=== PATIENT | male | born 1995 | race Caucasian/White ===

== ENCOUNTER 2018-09-13 08:47 | Emergency (ER) | payer BC ==
--- NOTE | 2018-09-13 10:04 | EDPHYS ---
Physician Documentation [facility] Name: Rodo Ybarra Age: 22 yrs Sex: Male : 1995 Arrival Date: 09/13/2018 Time: 08:52 Bed 20 Private MD: None, None ED Physician Florin Smith HPI: 09/13 09:22 This 22 yrs old Male presents to ER via Ambulatory with complaints of Flu Symptoms. kb 09:22 The patient or guardian reports cough, that is intermittent, described as moderate, kb with no sputum, flu symptoms, low-grade fever, myalgias. Onset: The symptoms/episode began/occurred 2 week(s) ago. Severity of symptoms: At their worst the symptoms were mild, moderate, in the emergency department the symptoms are unchanged. Modifying factors: The symptoms are alleviated by nothing, the symptoms are aggravated by nothing. Associated signs and symptoms: Pertinent positives: earache, fever, nausea, rhinorrhea, sore throat, Pertinent negatives: chest pain, diarrhea, vomiting. The patient has not experienced similar symptoms in the past. The patient has not recently seen a physician. Historical: - Allergies: 09:04 No Known Allergies; iw - Home Meds: 09:04 None [Active]; iw - PMHx: 09:04 None; iw - PSHx: 09:04 None; iw - Immunization history:: Adult Immunizations not up to date. - Social history:: Smoking status: Patient/guardian denies using tobacco. - Ebola Screening: : Patient negative for fever greater than or equal to 101.5 degrees Fahrenheit, and additional compatible Ebola Virus Disease symptoms Patient denies exposure to infectious person Patient denies travel to an Ebola-affected area in the 21 days before illness onset No symptoms or risks identified at this time. ROS: 09:20 Cardiovascular: Negative for chest pain, palpitations, and edema, Back: Negative for kb injury and pain, : Negative for injury, bleeding, discharge, and swelling, MS/Extremity: Negative for injury and deformity, Skin: Negative for injury, rash, and discoloration, Neuro: Negative for headache, weakness, numbness, tingling, and seizure. 09:20 Constitutional: Positive for body aches, chills, fatigue, fever, malaise, Negative for poor PO intake, weight loss. 09:20 ENT: Positive for ear pain, rhinorrhea, sinus congestion, sinus pain, sore throat. 09:20 Respiratory: Positive for cough, Negative for dyspnea on exertion, hemoptysis, orthopnea, pleurisy, shortness of breath, sputum production, wheezing. 09:20 Abdomen/GI: Positive for nausea, Negative for abdominal pain, vomiting, diarrhea, constipation, abdominal cramps, abdominal distension, anorexia. Exam: 09:21 Constitutional: This is a well developed, well nourished patient who is awake, alert, kb and in no acute distress. Head/Face: Normocephalic, atraumatic. ENT: Nares patent. No nasal discharge, no septal abnormalities noted. Tympanic membranes are normal and external auditory canals are clear. Oropharynx with no redness, swelling, or masses, exudates, or evidence of obstruction, uvula midline. Mucous membranes moist. Neck: Trachea midline, no thyromegaly or masses palpated, and no cervical lymphadenopathy. Supple, full range of motion without nuchal rigidity, or vertebral point tenderness. No Meningismus. Chest/axilla: Normal chest wall appearance and motion. Nontender with no deformity. No lesions are appreciated. Cardiovascular: Regular rate and rhythm with a normal S1 and S2. No gallops, murmurs, or rubs. Normal PMI, no JVD. No pulse deficits. Respiratory: Lungs have equal breath sounds bilaterally, clear to auscultation and percussion. No rales, rhonchi or wheezes noted. No increased work of breathing, no retractions or nasal flaring. Abdomen/GI: Soft, non-tender, with normal bowel sounds. No distension or tympany. No guarding or rebound. No evidence of tenderness throughout. Skin: Warm, dry with normal turgor. Normal color with no rashes, no lesions, and no evidence of cellulitis. MS/ Extremity: Pulses equal, no cyanosis. Neurovascular intact. Full, normal range of motion. Neuro: Awake and alert, GCS 15, oriented to person, place, time, and situation. Cranial nerves II-XII grossly intact. Motor strength 5/5 in all extremities. Sensory grossly intact. Cerebellar exam normal. Normal gait. Vital Signs: 09:04 BP 134 / 88; Pulse 80; Resp 16 S; Temp 98.0(O); Pulse Ox 100% on R/A; Weight 65.77 kg; iw Height 5 ft. 8 in. (172.72 cm); Pain 6/10; 10:03 BP 110 / 84; Pulse 80; Resp 17; Pulse Ox 98% ; rb1 09:04 Body Mass Index 22.05 (65.77 kg, 172.72 cm) iw MDM: 08:58 Patient medically screened. kb 09:21 Data reviewed: vital signs, nurses notes. Data interpreted: Pulse oximetry: on room air kb is 100 %. Interpretation: normal. 10:02 Counseling: I had a detailed discussion with the patient and/or guardian regarding: the kb historical points, exam findings, and any diagnostic results supporting the discharge/admit diagnosis, lab results, the need for outpatient follow up, a family practitioner, to return to the emergency department if symptoms worsen or persist or if there are any questions or concerns that arise at home. 12 09:13 Order name: Flu; Complete Time: 09:56 kb 09/13 09:13 Order name: Strep; Complete Time: 09:41 kb 09/13 09:41 Order name: Throat Culture EDMS Administered Medications: No medications were administered Disposition: 10:23 Co-signature as Attending Physician, Florin Smith MD. rn Disposition: 09/13/18 10:03 Discharged to Home. Impression: Acute sinusitis. - Condition is Stable. - Discharge Instructions: Sinusitis, Adult, [id number]. - Prescriptions for Augmentin 875- 125 mg Oral Tablet - take 1 tablet by ORAL route every 12 hours for 7 days; 14 tablet. Prednisone 20 mg Oral Tablet - take 1 tablet by ORAL route once daily for 5 days; 5 tablet. - Medication Reconciliation Form, Thank You Letter, Antibiotic Education, Prescription Opioid Use form. - Follow up: Emergency Department; When: As needed; Reason: Worsening of condition. Follow up: Private Physician; When: 2 - 3 days; Reason: Recheck today's complaints, Continuance of care, Re-evaluation by your physician. Signatures: Dispatcher [employer] EDMonika Mesa, VENKATESHC ZULEMA-Tamica Jimenez, RN RN Florin Latham MD MD rn Barber, Rebecca, RN RN rb1 Corrections: (The following items were deleted from the chart) 10:13 10:03 09/13/2018 10:03 Discharged to Home. Impression: Acute sinusitis. Condition is rb1 Stable. Forms are Medication Reconciliation Form, Thank You Letter, Antibiotic Education, Prescription Opioid Use. Follow up: Emergency Department; When: As needed; Reason: Worsening of condition. Follow up: Private Physician; When: 2 - 3 days; Reason: Recheck today's complaints, Continuance of care, Re-evaluation by your physician. kb
--- NOTE | 2018-09-13 10:04 | ER ---
Nurse's Notes [facility] Name: Rodo Ybarra Age: 22 yrs Sex: Male : 1995 Arrival Date: 09/13/2018 Time: 08:52 Bed 20 Private MD: None, None Diagnosis: Acute sinusitis Presentation: 09/13 09:01 Presenting complaint: Patient states: c/o nausea, sinus headache, fever,cough,fatigue, iw body aches,sore throat X 10days. Transition of care: patient was not received from another setting of care. Onset of symptoms was September 13, 2018. Risk Assessment: Do you want to hurt yourself or someone else? Patient reports no desire to harm self or others. Initial Sepsis Screen: Does the patient meet any 2 criteria? No. Patient's initial sepsis screen is negative. Does the patient have a suspected source of infection? No. Patient's initial sepsis screen is negative. Care prior to arrival: None. 09:01 Method Of Arrival: Ambulatory iw 09:01 Acuity: HOLA 4 iw Historical: - Allergies: 09:04 No Known Allergies; iw - Home Meds: 09:04 None [Active]; iw - PMHx: 09:04 None; iw - PSHx: 09:04 None; iw - Immunization history:: Adult Immunizations not up to date. - Social history:: Smoking status: Patient/guardian denies using tobacco. - Ebola Screening: : Patient negative for fever greater than or equal to 101.5 degrees Fahrenheit, and additional compatible Ebola Virus Disease symptoms Patient denies exposure to infectious person Patient denies travel to an Ebola-affected area in the 21 days before illness onset No symptoms or risks identified at this time. Screenin:07 Abuse screen: Denies threats or abuse. Nutritional screening: Has had N/V for 3 or more rb1 days. Tuberculosis screening: No symptoms or risk factors identified. Fall Risk None identified. Assessment: 09:07 General: Appears in no apparent distress. comfortable, Behavior is calm, cooperative. rb1 Pain: Complains of pain in generlized body aches, headache, and sore throat Pain currently is 4 out of 10 on a pain scale. Pain began x 2 weeks. Neuro: Level of Consciousness is awake, alert, obeys commands, Oriented to person, place, time, situation. Cardiovascular: Capillary refill < 3 seconds is brisk in bilateral fingers. Respiratory: Reports cough that is productive, green and blood tinged. Airway is patent Respiratory effort is even, unlabored, Respiratory pattern is regular, symmetrical. GI: Reports diarrhea, nausea, vomiting, since x 1 week. : No signs and/or symptoms were reported regarding the genitourinary system. EENT: Reports pain in throat when swallowing. Derm: Skin is pink, warm \T\ dry. Musculoskeletal: Range of motion: intact in all extremities. 10:03 Reassessment: Patient appears in no apparent distress at this time. No changes from rb1 previously documented assessment. Mother at bedside. Vital Signs: 09:04 BP 134 / 88; Pulse 80; Resp 16 S; Temp 98.0(O); Pulse Ox 100% on R/A; Weight 65.77 kg; iw Height 5 ft. 8 in. (172.72 cm); Pain 6/10; 10:03 BP 110 / 84; Pulse 80; Resp 17; Pulse Ox 98% ; rb1 09:04 Body Mass Index 22.05 (65.77 kg, 172.72 cm) iw ED Course: 08:52 Patient arrived in ED. sb2 08:52 None, None is Private Physician. sb2 08:55 [facility] Clarke [facility]C [facility]. kb 08:55 Florin Smith MD is Attending Physician. kb 09:03 Triage completed. iw 09:04 Arm band placed on. iw 09:07 Patient has correct armband on for positive identification. Bed in low position. Call rb1 light in reach. Side rails up X 1. Pulse ox on. NIBP on. 09:13 Chanel Bolton, RN is Primary Nurse. rb1 09:26 Flu and/or RSV swab sent to lab. Strep swab sent to lab. dh3 10:12 No provider procedures requiring assistance completed. Patient did not have IV access rb1 during this emergency room visit. Administered Medications: No medications were administered Outcome: 10:03 Discharge ordered by . kb 10:12 Discharged to home ambulatory, with family. rb1 10:12 Condition: stable 10:12 Discharge instructions given to patient, Instructed on discharge instructions, follow up and referral plans. medication usage, Demonstrated understanding of instructions, follow-up care, medications, Prescriptions given X 2. 10:13 Patient left the ED. rb1 Signatures: Monika Clarke FNP-C 911 EMERGENCY SERVICES DISPATCHER-Ckb Tamica Kramer, RN RN iw Chanel Bolton RN RN rb1 Flaca Ryder 3 Manuela Raymundo 2
== END 2018-09-13 10:13 | disposition home or self-care (01) ==
LOC: ER 08:47
DX: J01.90 Acute sinusitis, unspecified (principal)
CPT/HCPCS: 87070; 87081; 87804; 99283